=== PATIENT | female | born 1980 | race Caucasian/White ===

== ENCOUNTER 2020-01-14 14:08 | Emergency (ER) | payer OTHER, SELFPAY ==
[2020-01-14 14:40] VITALS: BP 143/80; PULSE 91; RESP 16; TEMP 37.2; O2SAT 97
--- NOTE | 2020-01-14 15:25 | ED.GENADULT ---
HPI - General Adult General Chief complaint: Upper Respiratory Infection Stated complaint: Sore throat Time Seen by Provider: 01/14/20 15:25 Source: patient Mode of arrival: ambulatory Limitations: no limitations History of Present Illness HPI narrative: 39-year-old female patient presents to the [facility] with complaints of a sore throat that started this morning. Patient denies any fevers, runny nose, ear pain. Patient denies any coughing, chest pain, shortness of breath. Patient states that her son was just diagnosed about 3 days ago with strep throat and therefore she went come in to make sure she was not contagious at this time. Related Data Home Medications Medication Instructions Recorded Confirmed buspirone 15 mg PO DAILY 01/14/20 01/14/20 Allergies Allergy/AdvReac Type Severity Reaction Status Date / Time No Known Allergies Allergy Verified 01/14/20 14:47 Review of Systems Review of Systems: Narrative: CONSTITUTIONAL: Denies fever, chills, or sweats. EYES: Denies visual changes, redness, or discharge. ENT: Denies rhinorrhea, congestion, positive sore throat, denies otalgia. CARDIOVASCULAR: Denies chest pain, palpitations, or edema. RESPIRATORY: Denies cough or dyspnea. GASTROINTESTINAL: Denies abdominal pain, nausea, vomiting, or diarrhea. GENITOURINARY: Denies dysuria or hematuria. SKIN: Denies rash or itching. MUSCULOSKELETAL: Denies back pain, joint pain, or myalgia. NEUROLOGIC: Denies headache, numbness, or weakness. PSYCHIATRIC: Denies anxiety or depression. [facility] Family History Family History Mother Depression Asthma Father Hypertension Malignant neoplasm of prostate Family history of congestive heart failure Social History Social History Smoking status: Never smoker Second hand tobacco smoke exposure: No Alcohol intake: current Comments At the time of my signature I agree with nursing past medical history, surgical, social, and family history. There is no relevant family history pertinent to the presenting complaint. Exam Narrative: Exam Narrative: GENERAL: Well-appearing, well-nourished, and in no acute distress. HEAD: Normocephalic, atraumatic. EYES: PERRLA and EOMI. ENT: Nares clear, no rhinorrhea or epistaxis. Mucous membranes moist. Posterior pharynx with no erythema, tonsillar margin, exudates or lesions present. Bilateral TMs are clear with no erythema or foreign bodies in the canal. NECK: Supple. No lymphadenopathy CHEST: Clear to auscultation. No respiratory distress. HEART: Regular rate and rhythm. No murmur heard. Normal peripheral pulses. ABDOMEN: Soft, nontender, nondistended, normal active bowel sounds. EXTREMITIES: Normal range of motion. No edema. SKIN: Warm, dry, no rash. NEURO: No focal deficits. Alert and oriented x3. Course Vital Signs Vital signs: Vital Signs Temperature 37.2 C 01/14/20 14:40 Pulse Rate 91 01/14/20 14:40 Respiratory Rate 16 01/14/20 14:40 Blood Pressure 143/80 H 01/14/20 14:40 Pulse Oximetry 97 01/14/20 14:40 Temperature 37.2 C 01/14/20 14:40 Pulse Rate 91 01/14/20 14:40 Respiratory Rate 16 01/14/20 14:40 Blood Pressure 143/80 H 01/14/20 14:40 Pulse Oximetry 97 01/14/20 14:40 Vital signs reviewed. The patient has been informed that they may have pre-hypertension or Hypertension based on a BP reading in the department. I recommend that the patient call the primary care provider listed on their discharge instructions or a physician of their choice this week to arrange follow up for further evaluation of possible pre-hypertension or Hypertension Medical Decision Making Differential Diagnosis Differential Diagnosis: Differential diagnosis: Allergic rhinitis, chronic sinusitis, tonsillitis, acute sinusitis, infectious mononucleosis, seasonal influenza, pertussis, diphtheria, meningococcal dise
== END 2020-01-14 15:37 | disposition home or self-care (01) ==
PROVIDERS: Emergency Provider Nurse Practitioner Family; PCP Family Medicine
DX: J02.9 Acute pharyngitis, unspecified (principal); E78.00 Pure hypercholesterolemia, unspecified; I10 Essential (primary) hypertension; F41.9 Anxiety disorder, unspecified
CPT/HCPCS: 87081; 87880; 99203; G0463

== ENCOUNTER 2020-03-20 08:59 | Outpatient (CLI) | payer OTHER, SELFPAY ==
--- NOTE | ~2020-03-20 | XR_ITS ---
XR chest 2V DATE: 03/20/2020 09:13 INDICATION: Cough, fever TECHNIQUE: PA and lateral views COMPARISON: None FINDINGS: Normal heart size. No hilar or mediastinal enlargement. No pulmonary infiltrate or consolid ation, pleural effusion or pulmonary vascular congestion or pneumothorax. IMPRESSION: No active cardiopulmonary disease Reviewed, dictated and finalized at location A.
== END 2020-03-20 09:00 | disposition home or self-care (01) ==
LOC: ANHIMG 09:01
PROVIDERS: PCP Family Medicine; Visit Provider Family Medicine
DX: R50.9 Fever, unspecified (principal); R05 Cough
CPT/HCPCS: 71046

== ENCOUNTER 2024-02-23 08:02 | Emergency (ER) | payer BC, SELFPAY ==
--- NOTE | 2024-02-23 08:08 | ED_ITS ---
HPI - Ear Problem General Chief complaint: Ear Stated complaint: Right Ear Problem Time Seen by Provider: 02/23/24 08:09 Source: patient, RN notes reviewed and old records reviewed Mode of arrival: ambulatory Limitations: no limitations History of Present Illness HPI Narrative: A 43-year-old female to Express Care for complaint of bilateral ear discomfort radiating into bilateral jaws for 3 days. Patient denies cough, fever, sore throat. patient able to tolerate fluids by mouth. Related Data Home Medications Medication Instructions Recorded Confirmed buspirone 10 mg tablet 20 mg PO BID 08/29/22 02/06/24 sertraline 100 mg tablet 200 mg PO DAILY 02/06/24 02/06/24 Allergies Allergy/AdvReac Type Severity Reaction Status Date / Time No Known Allergies Allergy Verified 02/06/24 15:40 Review of Systems Review of Systems: All systems reviewed & are unremarkable except as noted in HPI and below Constitutional: Constitutional: Reports as per HPI and Denies fever(s) Eyes: Eyes: Reports no additional eye complaints ENT: Reports as per HPI, Denies ear discharge, Reports otalgia ( Radiating into bilateral jaws) and Denies sore throat Cardiovascular: Cardiovascular: Reports no additional cardiovascular complaints, Denies chest pain and Denies dyspnea Respiratory: Respiratory: Reports no additional respiratory complaints, Denies cough and Denies dyspnea Musculoskeletal: Musculoskeletal: Reports no additional musculoskeletal complaints Neurologic: Reports system reviewed and no additional complaints, except as documented Psychiatric: Psychiatric: Reports no additional psychiatric complaints [facility] Past Medical History Medical History Breast asymmetry Diabetes Fasting hyperglycemia Hyperlipidemia LDL goal <70 Restless legs Family History Family History Mother Depression Asthma Father Hypertension Malignant neoplasm of prostate Family history of congestive heart failure Social History Social History Smoking status: Never smoker Second hand tobacco smoke exposure: No Alcohol intake: current Alcohol use details: seldom, socially Substance use: current Substance use type: marijuana Other substance usage details: cannabis edibles, on weekends Lack of Transportation: No Lack of Food: Never True Current Housing: I Have Housing Concerned About Future Housing: No Difficulty Paying Gas/Electric Bills: No Difficulty Paying for Meds: No Currently Unemployed: No Education: Bachelor's Degree Difficulty w/ Childcare or Family Care: No Living arrangements: with family Occupation/Education: occupation Gender identity (if verbalized by the patient): Female Sexual Orientation (if Verbalized by the Patient): Straight or Heterosexual Spiritual care concerns: No Agree to blood products: Yes Comments At the time of my signature, I reviewed and agree with the nursing past medical, surgical, social, and family history. There is no relevant family history pertinent to the patient complaint. Exam Const: General: cooperative, healthy appearing, comfortable, no acute distress, alert and well nourished Nutritional Appearance: well nourished Orientation/consciousness: patient oriented x3 Limitations: no limitations HENMT: Head: normal to inspection Ears: external ears normal, Abnormal EAC present cerumen impaction bilateral ( worse on right) and EAC tenderness on the right, TM abnormal dull on the right, with fluid behind the TM on the left and diffuse and retracted on the right and unable to visualize TM ( able to visualize after removal of cerumen) on the right Face/Nose/Sinus: Normal external nose present, Normal nares present, normal facial exam, No erythema and No edema Face and sinus: normal facial exam, no erythema and no edema Mouth: Yes Normal oral and palatal mucosa present Eyes: General: appearance normal, both eyes and all related structures Neck: Neck: normal visual inspection, full ROM and no meningeal signs Lymphatic: no lymphadenopathy noted and no lymphedema noted Chest: Chest palpation & inspection: normal inspection of the chest Resp: Effort & Inspection: normal respiratory effort and able to speak in complete sentences Auscultation: clear to auscultation bilaterally Cardio: Jugular venous distension: no JVD Rate: regular rate Rhythm: regular rhythm Back/Spine/Pelvis: Cervical Spine: cervical ROM normal Skin: General skin exam: normal color, no rashes or lesions noted and turgor normal Neuro: General: patient oriented x3, gait normal, moves all extremities and no meningeal signs Speech: normal speech Gait exam (Neuro): Normal gait present Extrem: General: normal to inspection, full ROM and capillary refill normal Psych: Appearance: grossly normal and well kempt Course Course Emergency Course: Some parts of this dictation were generated by voice recognition software and may contain typographical and/or grammatical inaccuracies. Level of Care: Express Care Visit Vital Signs Vital signs: Vital Signs Temperature 36.4 C L 02/23/24 08:09 Pulse Rate 92 02/23/24 08:09 Respiratory Rate 16 02/23/24 08:09 Blood Pressure 112/93 H 02/23/24 08:09 Pulse Oximetry 99 02/23/24 08:09 Oxygen Delivery Room Air 02/23/24 08:09 Temperature 36.4 C L 02/23/24 08:09 Pulse Rate 92 02/23/24 08:09 Respiratory Rate 16 02/23/24 08:09 Blood Pressure 112/93 H 02/23/24 08:09 Pulse Oximetry 99 02/23/24 08:09 Oxygen Delivery Room Air 02/23/24 08:09 reviewed Procedures Ear Wax Removal Both Ears: Ear Wax Removal Date: 02/23/24 Ear Wax Removal Time: 08:15 Results: Re-examined: cerumen removed completely TM Examination: other (Left ear, clear fluid behind TM. Right TM retracted, dull. ) Ear Canal Exam: atraumatic Patient Tolerated Procedure: well Complications: no problems Technique: ear canal irrigated and ear canal curetted Medical Decision Making MDM Narrative Medical decision making narrative: Patient is sitting comfortably in exam room nontoxic in appearance. Patient appropriate for outpatient treatment and follow-up. Discharge instructions reviewed with patient, as well as provided in writing per nursing staff. The instructions also include specific and strict return/GO TO THE ER as well as f/u information. All questions have been answered, and the patient deny any further questions with discharge and discharge plan. Some parts of this dictation were generated by voice recognition software and may contain typographical and/or grammatical inaccuracies. Differential Diagnosis Differential Diagnosis: otitis media, otitis externa, ruptured tympanic membrane, upper respiratory infection Vital Signs Vital Signs: Vital Signs Temperature 36.4 C L 02/23/24 08:09 Pulse Rate 92 02/23/24 08:09 Respiratory Rate 16 02/23/24 08:09 Blood Pressure 112/93 H 02/23/24 08:09 Pulse Oximetry 99 02/23/24 08:09 Oxygen Delivery Room Air 02/23/24 08:09 Temperature 36.4 C L 02/23/24 08:09 Pulse Rate 92 02/23/24 08:09 Respiratory Rate 16 02/23/24 08:09 Blood Pressure 112/93 H 04/13/24 08:09 Pulse Oximetry 99 02/23/24 08:09 Oxygen Delivery Room Air 02/23/24 08:09 reviewed Discharge Plan Discharge Clinical Impression: Otitis media Qualifiers: Otitis media type: unspecified Chronicity: acute Qualified Code(s): H66.90 - Otitis media, unspecified, unspecified ear Patient Disposition: Home, Self-Care Condition: Stable Instructions: Antibiotic Form Additional Instructions: -Alternate Tylenol and Motrin per package directions for fever or pain. -Follow up with primary care provider in 2-3 days if condition is not improving; or seek ER visit if you have trouble breathing, cannot drink enough fluids, have muffled voice, difficulty opening your mouth, or severe swelling. Patient Language: Nepali Prescriptions: New amoxicillin 875 mg tablet 875 mg PO Q12H Qty: 20 0RF No Action buspirone 10 mg tablet 20 mg PO BID hydrochlorothiazide 25 mg tablet 25 mg PO DAILY Qty: 90 3RF simvastatin 80 mg tablet 80 mg PO DAILY Qty: 90 3RF sertraline 100 mg tablet 200 mg PO DAILY ropinirole 0.5 mg tablet 0.5 mg PO QHS Qty: 60 4RF olmesartan 40 mg tablet 40 mg PO DAILY Qty: 90 1RF metformin 1,000 mg tablet 1,000 mg PO BID Qty: 180 1RF Follow-up/Referrals: Antoinette Martin MD [Primary Care Provider] - Time of Disposition: 08:33
[2024-02-23 08:09] VITALS: BP 112/93; PULSE 92; RESP 16; TEMP 36.4; O2SAT 99
== END 2024-02-23 08:43 | disposition home or self-care (01) ==
PROVIDERS: Emergency Provider Nurse Practitioner Family; PCP Family Medicine
DX: H66.93 Otitis media, unspecified, bilateral (principal); H61.23 Impacted cerumen, bilateral; E11.9 Type 2 diabetes mellitus without complications; E78.5 Hyperlipidemia, unspecified; G25.81 Restless legs syndrome
CPT/HCPCS: 69210; 99213; A9270; G0463

== ENCOUNTER 2024-07-03 08:13 | Emergency (ER) | payer BC, SELFPAY ==
--- NOTE | 2024-07-03 08:30 | ED.FEMALEGU ---
HPI - Female Genitourinary General Stated complaint: Urinary Problem Time Seen by Provider: 07/03/24 08:30 Source: patient, RN notes reviewed and old records reviewed Mode of arrival: ambulatory Limitations: no limitations History of Present Illness HPI Narrative: 43 year old female who presents to [facility] care with complaints of left flank pain which is nonradiating which started last night. Patient reports that she has nausea and vomiting associated with her pain and has had 5 emesis since last evening. patient reports that she is voiding in small amounts,denies any burning urgency or frequency of urination, no fevers reported. patient reports that she does have history of past kidney stones. Instructed patient that a CT scan of abdomen/pelvis is diagnostic for kidney stones and we don't do at out facility. Patient wanted provider to call to hospital and set up test, Instructed patient she would have to go through ER to get test done on emergent basis. Patient reports that she doesn't want to go to ED and wait for 5-6 hours states if pain gets worse she will go. Patient states that she is going to go home and drink lots of water and take something for her discomfort and see how she does.and states if pain increases or she starts with a fever she will go to ED. MD elicited complaint: UTI Pertinent past history: other (kidney stone) Onset (ago): day(s) (last evening) Location of symptoms: flank (left) Severity: moderate Severity scale (1-10): 5 Quality of pain: sharp and aching Consistency: constant Vaginal discharge: none Vaginal bleeding: scant and other (just finishing her menses) Treatment prior to arrival: none Related Data Home Medications Medication Instructions Recorded Confirmed buspirone 10 mg tablet 20 mg PO BID 08/29/22 02/06/24 sertraline 100 mg tablet 200 mg PO DAILY 02/06/24 02/06/24 Allergies Allergy/AdvReac Type Severity Reaction Status Date / Time No Known Allergies Allergy Verified 02/06/24 15:40 Review of Systems Review of Systems: CONSTITUTIONAL: Denies fever, chills, or sweats. CARDIOVASCULAR: Denies chest pain, palpitations, or edema. RESPIRATORY: Denies cough or dyspnea. GASTROINTESTINAL: Denies abdominal pain, positive for nausea, vomiting, no diarrhea. GENITOURINARY: Reports no dysuria, frequency,or urgency,states voiding in small amounts. Positive for left flank pain with no radiation or hematuria. SKIN: Denies rash or itching. MUSCULOSKELETAL: Denies back pain or myalgia. Reports left CVA tenderness NEUROLOGIC: Denies headache All systems reviewed & are unremarkable except as noted in HPI and below PMFSH Past Medical History Medical History (Updated 07/03/24 @ 12:36 by Loren Rader NP) Anxiety and depression Breast asymmetry Diabetes Fasting hyperglycemia Hyperlipidemia LDL goal <70 Hypertension Kidney stone Restless legs Family History Family History Mother Depression Asthma Father Hypertension Malignant neoplasm of prostate Family history of congestive heart failure Social History Social History Smoking status: Never smoker Second hand tobacco smoke exposure: No Alcohol intake: current Alcohol use details: seldom, socially Substance use: current Substance use type: marijuana Other substance usage details: cannabis edibles, on weekends Lack of Transportation: No Lack of Food: Never True Current Housing: I Have Housing Concerned About Future Housing: No Difficulty Paying Gas/Electric Bills: No Difficulty Paying for Meds: No Currently Unemployed: No Education: Bachelor's Degree Difficulty w/ Childcare or Family Care: No Living arrangements: with family Occupation/Education: occupation Gender identity (if verbalized by the patient): Female Sexual Orientation (if Verbalized by the Patient): Straight or Hete
[2024-07-03 15:00] LABS: EDUAAPPEAR Clear; EDUABILI Negative; EDUABLOOD 2+; EDUACOLOR1 Pink; EDUAGLUCOSE Negative; EDUAKETONE Negative; EDUALEUKO Negative; EDUANITRATE Negative; EDUAPH 6.5; EDUAPROTEIN 2+; EDUASPGRAVITY 1.025; EDUAUROBILI 0.2
== END 2024-07-03 08:34 | disposition home or self-care (01) ==
PROVIDERS: Emergency Provider Registered Nurse; PCP Family Medicine
DX: R10.9 Unspecified abdominal pain (principal); R11.2 Nausea with vomiting, unspecified; F12.90 Cannabis use, unspecified, uncomplicated; E11.9 Type 2 diabetes mellitus without complications; E78.5 Hyperlipidemia, unspecified; I10 Essential (primary) hypertension; G25.81 Restless legs syndrome; F41.9 Anxiety disorder, unspecified; F32.A Depression, unspecified
CPT/HCPCS: 81003; 87086; 87088; 99213; G0463